=== PATIENT | female | born 1995 | race Two or more races ===

== ENCOUNTER 2020-07-03 12:09 | Emergency (ER) | payer MEDICAID ==
[~2020-07-03] VITALS: Ht 160 cm; Wt 79.0 kg
[2020-07-03] MEDS: fentaNYL PF VIAL 100 MCG/2 ML VIAL IV PRN (13:35)
[2020-07-03] MEDS: IV NORMAL SALINE 1000ML BAG 1,000 ML IV SCH (13:36)
[2020-07-03] MEDS: KETOROLAC 30 MG/ML VIAL. IVP ONE (13:36)
[2020-07-03] MEDS: ONDANSETRON PF 4 MG/2 ML VIAL. IVP ONE (13:36)
[2020-07-03 13:45] LABS: BASO % 0 % (0-3); EOS # 0.2 x10^3/uL (0.0-0.7); EOS % 3 % (0-3); HEMATOCRIT 41.8 % (36.0-47.0); HEMOGLOBIN 13.5 g/dL (12.0-15.5); LYMPH # 1.7 x10^3/uL (1.0-4.8); LYMPH % 19 % (24-48); MEAN CORPUSCULAR HEMOGLOBIN 27 pg (25-35); MEAN CORPUSCULAR HGB CONC 32 g/dL (31-37); MEAN CORPUSCULAR VOLUME 85 fL (79-100); MONO # 0.5 x10^3/uL (0.0-1.1); MONO % 6 % (0-9); NEUT # 6.3 x10^3/uL (1.8-7.7); NEUT % 72 % (31-73); PLATELET COUNT 271 x10^3/uL (140-400); RED BLOOD COUNT 4.95 x10^6/uL (3.50-5.40); RED CELL DISTRIBUTION WIDTH 15.7 % (11.5-14.5); WHITE BLOOD COUNT 8.8 x10^3/uL (4.0-11.0)
[2020-07-03 13:53] LABS: BILIRUBIN,URINE NEGATIVE (NEG); CLARITY,URINE CLOUDY; COLOR,URINE AMBER; NITRITE,URINE NEGATIVE (NEG); PH,URINE 5.5 (<5.0-8.0); PROTEIN,URINE 30 mg/dL (NEG-TRACE); UROBILINOGEN,URINE 0.2 mg/dL (0.2 mg/dL)
[2020-07-03 14:08] LABS: ALBUMIN 3.8 g/dL (3.4-5.0); ALBUMIN/GLOBULIN RATIO 1.2 (1.0-1.7); CALCIUM 8.8 mg/dL (8.5-10.1); CREATININE 0.6 mg/dL (0.6-1.0); TOTAL BILIRUBIN 0.7 mg/dL (0.2-1.0); TOTAL PROTEIN 6.9 g/dL (6.4-8.2)
[2020-07-03 14:11] LABS: BACTERIA,URINE FEW /HPF (0-FEW); RBC,URINE TNTC /HPF (0-2)
--- NOTE | 2020-07-03 14:12 | PHYS DOC ---
Past Medical History Past Medical History: No Pertinent History Past Surgical History: No Surgical History Smoking Status: Never Smoker Alcohol Use: None General Adult EDM: Chief Complaint: ABDOMINAL PAIN HPI: HPI: Patient is a 24 year old female presents to the emergency room for evaluation of left flank pain that radiates around to her left abdomen. She reports the symptoms started today. She has had some nausea and vomiting. She reports a discomfort with urination. Denies . She reports no fever, diarrhea, or constipation. Review of Systems: Review of Systems: Constitutional: Denies fever or chills. [] Eyes: Denies change in visual acuity. [] HENT: Denies nasal congestion or sore throat. [] Respiratory: Denies cough or shortness of breath. [] Cardiovascular: Denies chest pain or edema. [] GI: Reports abdominal pain, nausea, vomiting, denies bloody stools or diarrhea. [] : Denies dysuria. [] Musculoskeletal: Denies back pain or joint pain. [] Integument: Denies rash. [] Neurologic: Denies headache, focal weakness or sensory changes. [] Endocrine: Denies polyuria or polydipsia. [] Lymphatic: Denies swollen glands. [] Psychiatric: Denies depression or anxiety. [] Heart Score: Risk Factors: Risk Factors: DM, Current or recent (<one month) smoker, HTN, HLP, family history of CAD, obesity. Risk Scores: Score 0 - 3: 2.5% MACE over next 6 weeks - Discharge Home Score 4 - 6: 20.3% MACE over next 6 weeks - Admit for Clinical Observation Score 7 - 10: 72.7% MACE over next 6 weeks - Early Invasive Strategies Current Medications: Current Medications Medications (Trade) Dose Ordered Sig/[facility] Start Time Stop Time Status Last Admin Dose Admin Fentanyl Citrate (Fentanyl 2ml Vial) 25 mcg PRN Q15MIN PRN 07/03/20 13:30 07/04/20 13:29 07/03/20 13:35 25 MCG Ketorolac Tromethamine (Toradol 30mg Vial) 15 mg 1X ONCE 07/03/20 13:30 07/03/20 13:31 DC 07/03/20 13:36 15 MG Ondansetron HCl (Zofran) 4 mg 1X ONCE 07/03/20 13:30 07/03/20 13:31 DC 07/03/20 13:36 4 MG Sodium Chloride 1,000 ml @ 1,000 mls/hr Q1H 07/03/20 13:30 07/03/20 14:29 07/03/20 13:36 1,000 MLS/HR Allergies: Allergies: Allergies Coded Allergies Type Severity Reaction Last Updated Verified No Known Drug Allergies 07/03/20 No Physical Exam: PE: Constitutional: Well developed, well nourished, no acute distress, non-toxic appearance, UNCOMFORTABLE. [] HENT: Normocephalic, atraumatic, bilateral external ears normal, oropharynx moist, no oral exudates, nose normal. [] Eyes: PERRLA, EOMI, conjunctiva normal, no discharge. [] Cardiovascular:Heart rate regular rhythm, no murmur [] Lungs & Thorax: Bilateral breath sounds clear to auscultation [] Abdomen: Bowel sounds normal, soft, LLQ tenderness, no masses, no pulsatile masses. [] Skin: Warm, dry, no erythema, no rash. [] Back: No tenderness, LEFT CVA tenderness. [] Extremities: No tenderness, no cyanosis, no clubbing, ROM intact, no edema. [] Neurologic: Alert and oriented X 3, normal motor function, normal sensory function, no focal deficits noted. [] Psychologic: Affect normal, judgement normal, mood normal. [] Current Patient Data: Labs: Laboratory Tests Test 07/03/20 13:14 07/03/20 13:16 07/03/20 13:45 POC Urine HCG, Qualitative Hcg negative (Negative) White Blood Count 8.8 x10^3/uL (4.0-11.0) Red Blood Count 4.95 x10^6/uL (3.50-5.40) Hemoglobin 13.5 g/dL (12.0-15.5) Hematocrit 41.8 % (36.0-47.0) Mean Corpuscular Volume 85 fL (79-100) Mean Corpuscular Hemoglobin 27 pg (25-35) Mean Corpuscular Hemoglobin Concent 32 g/dL (31-37) Red Cell Distribution Width 15.7 % (11.5-14.5) H Platelet Count 271 x10^3/uL (140-400) Neutrophils (%) (Auto) 72 % (31-73) Lymphocytes (%) (Auto) 19 % (24-48) L Monocytes (%) (Auto) 6 % (0-9) Eosinophils (%) (Auto) 3 % (0-3) Basophils (%) (Auto) 0 % (0-3) Neutrophils # (Auto) 6.3 x10^3/uL (1.8-7.7) Lymphocytes # (Auto) 1.7 x10^3/uL (1.0-4.8) Monocytes # (Auto) 0.5 x10^3/uL (0.0-1.1) Eosinophils # (Auto) 0.2 x10^3/uL (0.0-0.7) Basophils # (Auto) 0.0 x10^3/uL (0.0-0.2) Sodium Level 140 mmol/L (136-145) Potassium Level 4.0 mmol/L (3.5-5.1) Chloride Level 106 mmol/L (98-107) Carbon Dioxide Level 25 mmol/L (21-32) Anion Gap 9 (6-14) Blood Urea Nitrogen 15 mg/dL (7-20) Creatinine 0.6 mg/dL (0.6-1.0) Estimated GFR (Cockcroft-Gault) 125.0 BUN/Creatinine Ratio 25 (6-20) H Glucose Level 101 mg/dL (70-99) H Calcium Level 8.8 mg/dL (8.5-10.1) Total Bilirubin 0.7 mg/dL (0.2-1.0) Aspartate Amino Transferase (AST) 40 U/L (15-37) H Alanine Aminotransferase (ALT) 66 U/L (14-59) H Alkaline Phosphatase 87 U/L (46-116) Total Protein 6.9 g/dL (6.4-8.2) Albumin 3.8 g/dL (3.4-5.0) Albumin/Globulin Ratio 1.2 (1.0-1.7) Lipase 91 U/L (73-393) Laboratory Tests 07/03/20 13:16 Laboratory Tests 07/03/20 13:45 Vital Signs: Vital Signs Date Time Temp Pulse Resp B/P (MAP) Pulse Ox O2 Delivery O2 Flow Rate FiO2 07/03/20 13:35 16 100 Room Air 07/03/20 13:00 98.1 89 131/89 (103) 98.1 EKG: EKG: [] Radiology/Procedures: Radiology/Procedures: []PROCEDURE: CT ABDOMEN PELVIS WO CONTRAST Exam: CT abdomen/pelvis without intravenous contrast Indication: Hematuria, left flank pain Comparison: None Technique: Helical CT imaging performed of the abdomen and pelvis without the use of intravenous contrast. Sagittal and coronal reformats were obtained. One or more of the following individualized dose reduction techniques were utilized for this examination: 1. Automated exposure control 2. Adjustment of the mA and/or kV according to patient size 3. Use of iterative reconstruction technique. Findings: Inherently limited evaluation without intravenous contrast. Lower chest: Lung bases are clear. The heart is normal in size Liver: Unremarkable. Gallbladder/Biliary Tree: Well. Pancreas: . Spleen: Normal. Adrenal Glands: Adrenal glands are normal. Kidneys/Ureters/Bladder: Mild left hydroureteronephrosis. There is a 4 mm calculus in the bladder. No nephrolithiasis or ureterolithiasis. The right kidney and right ureter are normal. No bladder wall thickening. Reproductive Organs: Normal. Stomach, small bowel, and colon: Stomach, small bowel, appendix, and colon are normal. Vasculature: Abdominal aorta is normal in caliber. Lymph Nodes: No lymphadenopathy Peritoneum and retroperitoneum: No free fluid or free air. Bones: No acute osseous abnormality. 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 Impression: Mild left hydroureteronephrosis. 4 mm calculus in the bladder. No calculus in the kidneys or ureters. Electronically signed by: Luli Espinoza MD (07/03/2020 2:52 PM) [id number] DICTATED and SIGNED BY: LULI ESPINOZA MD DATE: 07/03/20 [id number] 0 Course & Med Decision Making: Course & Med Decision Making Pertinent Labs and Imaging studies reviewed. (See chart for details) [] On reexamination, patient is feeling better, she not having any more nausea or vomiting and her pain is resolved. She does have a 4 mm kidney stone that is within the bladder. Discussed findings with patient, she is breast-feeding, will send home appropriate medications and have her follow-up with urology. Strict return precautions discussed, no evidence of infection, patient verbalized understanding and agrees with plan of care. Dragon Disclaimer: Dragmickey Disclaimer: This electronic medical record was generated, in whole or in part, using a voice recognition dictation system. Departure Departure Impression: Primary Impression: Kidney stone Disposition: 01 DC HOME SELF CARE/HOMELESS Referrals: NO PCP (PCP) Patient Instructions: Kidney Stones, [id number] Scripts Ondansetron Hcl (ZOFRAN) 4 Mg Tablet 1 TAB PO Q6HRS, #20 TAB Prov: BOY JARQUIN APRN 07/03/20 Hydrocodone/Apap 5-325 (NORCO 5-325 TABLET) 1 Each Tablet 1 TAB PO PRN Q6HRS PRN for PAIN, #10 TAB 0 Refills Prov: BOY JARQUIN APRN 07/03/20 BOY JARQUIN APRN Jul 03, 2020 14:12
[2020-07-03 14:23] VITALS: BP 104/63
--- NOTE | 2020-07-03 14:55 | RAD ---
Exam: CT abdomen/pelvis without intravenous contrast Indication: Hematuria, left flank pain Comparison: None Technique: Helical CT imaging performed of the abdomen and pelvis without the use of intravenous contrast. Sagittal and coronal reformats were obtained. One or more of the following individualized dose reduction techniques were utilized for this examination: 1. Automated exposure control 2. Adjustment of the mA and/or kV according to patient size 3. Use of iterative reconstruction technique. Findings: Inherently limited evaluation without intravenous contrast. Lower chest: Lung bases are clear. The heart is normal in size Liver: Unremarkable. Gallbladder/Biliary Tree: Well. Pancreas: . Spleen: Normal. Adrenal Glands: Adrenal glands are normal. Kidneys/Ureters/Bladder: Mild left hydroureteronephrosis. There is a 4 mm calculus in the bladder. No nephrolithiasis or ureterolithiasis. The right kidney and right ureter are normal. No bladder wall thickening. Reproductive Organs: Normal. Stomach, small bowel, and colon: Stomach, small bowel, appendix, and colon are normal. Vasculature: Abdominal aorta is normal in caliber. Lymph Nodes: No lymphadenopathy Peritoneum and retroperitoneum: No free fluid or free air. Bones: No acute osseous abnormality. 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 Impression: Mild left hydroureteronephrosis. 4 mm calculus in the bladder. No calculus in the kidneys or ureters. Electronically signed by: Luli Espinoza MD (07/03/2020 2:52 PM) [id number]
[2020-07-03] MEDS ORDERED: ONDA4TAB7 PO (15:20)
[2020-07-03] MEDS ORDERED: HYDR-3164 PO (15:20)
== END 2020-07-03 15:34 | disposition home or self-care (01) ==
LOC: ER 12:09
DX: N13.2 Hydronephrosis with renal and ureteral calculous obstruction (principal); N21.0 Calculus in bladder
CPT/HCPCS: 36415; 74176; 80053; 81001; 81025; 83690; 85025; 96361; 96374; 96375; 99284; J1885; J2405; J3010; J7030